=== PATIENT | male | born 1985 | race Caucasian/White ===

== ENCOUNTER 2019-09-21 05:56 | Emergency (ER) | payer OTHER ==
[~2019-09-21] VITALS: Ht 182.9 cm; Wt 89.1 kg
--- NOTE | 2019-09-21 06:13 | NUR ---
PA AT BEDSIDE TO ASSESS PT
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
--- NOTE | 2019-09-21 06:37 | NUR ---
PT BACK TO ROOM FROM XRAY
[2019-09-21 06:47] LABS: RAPID INFLUENZA A Negative (Negative); RAPID INFLUENZA B Negative (Negative)
--- NOTE | 2019-09-21 06:53 | NUR ---
REPORT TO ULYSSES DUARTE
--- NOTE | 2019-09-21 07:11 | NUR ---
REPORT FROM DALILA DUARTE. PT RESTING IN NAD. CALL LIGHT IN REACH
[2019-09-21 08:16] VITALS: BP 111/74
--- NOTE | 2019-09-21 08:18 | NUR ---
PT RESTING. VSS. PT HAS NO NEEDS AT THIS TIME. WAITING FOR XRAY RESULTS. CALL LIGHT IN REACH
--- NOTE | 2019-09-21 08:32 | NUR ---
Patient given discharge instructions and they have confirmed that they understand the instructions. Patient ambulatory with steady gait.
== END 2019-09-21 08:33 | disposition home or self-care (01) ==
LOC: ED 07:36
DX: J06.9 Acute upper respiratory infection, unspecified (principal); F17.210 Nicotine dependence, cigarettes, uncomplicated; Z72.9 Problem related to lifestyle, unspecified
CPT/HCPCS: 71046; 87400; 99284; 99406